=== PATIENT | male | born 1975 | race Caucasian/White ===

== ENCOUNTER → 2016-11-04 | Outpatient (CLI) | payer BC ==
[~2016-11-04] VITALS: Ht 172.7 cm; Wt 85.7 kg
[~2016-11-04] MED LIST: LIDOCAINE 2% INJ 100 MG/5 ML SDV (FOR ANES.) As Ordered ONE; NS 1,000 ML IV SCH; PROPOFOL 200 MG/20 ML VIAL As Ordered ONE; PROT1TAB2 PO; VITA100037 PO
--- NOTE | 2016-11-04 09:54 | ROOR ---
Patient Name: Yovanny Vargas Procedure Date: 11/04/2016 9:37 AM Date of : 1975 Age: 41 Room: [facility] Gender: Male Note Status: Finalized Procedure: Upper GI endoscopy Indications: Heartburn Providers: Fili LOPEZ MD Referring MD: FABRICE ABREU MD Requesting Provider: Medicines: Monitored Anesthesia Care Complications: No immediate complications. Procedure: Pre-Anesthesia Assessment: - The heart rate, respiratory rate, oxygen saturations, blood pressure, adequacy of pulmonary ventilation, and response to care were monitored throughout the procedure. The Endoscope was introduced through the mouth, and advanced to the second part of duodenum. The upper GI endoscopy was accomplished without difficulty. The patient tolerated the procedure well. Findings: The Z-line was variable and was found 39 cm from the incisors. This was biopsied with a cold forceps for histology. The examined esophagus was normal. The entire examined stomach was normal. The examined duodenum was normal. Impression: - Z-line variable at 39 cm from the incisors. Biopsied to r/o junctional mucosa vs short barretts. - Normal esophagus. - Normal stomach. - Normal examined duodenum. Recommendation: - Continue present medications. - Telephone endoscopist for pathology results in 2 weeks. Fili Lopez MD Fili LOPEZ MD 11/04/2016 9:53:48 AM This report has been signed electronically. Number of Addenda: 0 Note Initiated On: 11/04/2016 9:37 AM Estimated Blood Loss: Estimated blood loss: none.
[2016-11-04 10:22] VITALS: BP 137/71
== END ==
LOC: M OPP 08:58
PROVIDERS: ATTEND Internal Medicine Gastroenterology
DX: R12 Heartburn (principal); K22.8 Other specified diseases of esophagus; F17.220 Nicotine dependence, chewing tobacco, uncomplicated; Z79.899 Other long term (current) drug therapy

== ENCOUNTER 2018-10-29 08:19 | Emergency (ER) | payer OTHER, BC ==
[~2018-10-29] VITALS: Ht 175.3 cm; Wt 90.6 kg
[~2018-10-29 08:19] MED LIST changes: -LIDOCAINE 2% INJ 100 MG/5 ML SDV (FOR ANES.) As Ordered ONE; -NS 1,000 ML IV SCH; -PROPOFOL 200 MG/20 ML VIAL As Ordered ONE; -VITA100037 PO; +VITA100067 PO
--- NOTE | 2018-10-29 09:46 | REP ---
CT Head without contrast HISTORY: Injury COMPARISON: 05/07/2008 There is no intraparenchymal hemorrhage, acute infarct, mass or midline shift. The ventricular system is normal in appearance. There is no extra cerebral collection. There is no fracture. The visualized sinuses are clear. IMPRESSION: There is no intracranial lesion. Electronically Signed by Bang Carr MD 10/29/2018 09:39 A
--- NOTE | 2018-10-29 09:51 | REP ---
CT cervical spine without contrast HISTORY: Injury COMPARISON: None There is no acute fracture or subluxation. Disc bulges are present at the C3-4 through C5-6 levels. There is minimal narrowing of the spinal canal. The spinal canal and neural foramina are patent. The C5-6 intervertebral disc is decreased in height consistent with disc degeneration. IMPRESSION: 1. There is no acute fracture or subluxation. 2. There is cervical spondylosis at the C3-4 through C5-6 levels. Electronically Signed by Bang Carr MD 10/29/2018 09:43 A
[2018-10-29 10:13] VITALS: BP 140/82
== END 2018-10-29 10:17 | disposition home or self-care (01) ==
LOC: M ED 08:19
DX: S16.1XXA Strain of muscle, fascia and tendon at neck level, initial encounter (principal); S09.90XA Unspecified injury of head, initial encounter; W19.XXXA Unspecified fall, initial encounter; Y92.59 Other trade areas as the place of occurrence of the external cause; Y93.89 Activity, other specified; F17.220 Nicotine dependence, chewing tobacco, uncomplicated

== ENCOUNTER 2024-04-04 07:50 | Emergency (ER) | payer OTHER ==
[~2024-04-04] VITALS: Ht 172.7 cm; Wt 99.6 kg
[2024-04-04 07:50] VITALS: BP 145/86; TEMP 97; O2SAT 97
[2024-04-04] MEDS ORDERED: IBUP-1764 PO (09:20)
[2024-04-04] MEDS ORDERED: IBUP-1022 PO (09:53)
== END 2024-04-04 10:08 | disposition home or self-care (01) ==
LOC: M ED 07:50
DX: S93.402A Sprain of unspecified ligament of left ankle, initial encounter (principal); W10.8XXA Fall (on) (from) other stairs and steps, initial encounter; Z79.1 Long term (current) use of non-steroidal anti-inflammatories (NSAID); Y92.9 Unspecified place or not applicable; Y93.89 Activity, other specified; Y99.0 Civilian activity done for income or pay